=== PATIENT | male | born 1955 | race Caucasian/White ===

== ENCOUNTER 2018-01-09 11:30 | Inpatient (IN) | payer OTHER ==
[~2018-01-09] VITALS: Ht 175.3 cm; Wt 82.3 kg
[~2018-01-09 11:30] MED LIST: LISI-167 PO
[2018-01-09] MEDS ORDERED: HEPARIN 25,000 UNITS/500ML PMX 500 ML IV PRN ×2 (12:00→13:00)
[2018-01-09 12:15] LABS: BASOPHILS # (AUTO) 0.08 x10^3/uL (0-0.1); BASOPHILS % (AUTO) 1 % (0-1); EOSINOPHILS # (AUTO) 0.19 x10^3/uL (0-0.4); EOSINOPHILS % (AUTO) 2 % (1-7); LYMPHOCYTES # (AUTO) 0.84 x10^3/uL (1-3.4); LYMPHOCYTES % (AUTO) 7 % (22-44); MD NO; MEAN CORPUSCULAR HEMOGLOBIN 30.5 pg (27.5-34.5); MEAN CORPUSCULAR HGB CONC 33.6 g/dL (33.2-36.2); MEAN CORPUSCULAR VOLUME 90.7 fL (81-97); MONOCYTES # (AUTO) 0.86 x10^3/uL (0.2-0.8); MONOCYTES % (AUTO) 7 % (2-9); NEUTROPHILS % (AUTO) 84 % (42-75); PLATELET COUNT 483 x10^3/uL (130-400); RED BLOOD COUNT 4.55 x10^6/uL (4.38-5.82); RED CELL DISTRIBUTION WIDTH 12.3 % (9.4-14.8)
[2018-01-09] MEDS ORDERED: HEPARIN 25,000 UNITS/500ML PMX 500 ML ONE (12:18)
[2018-01-09] MEDS ORDERED: HEPARIN 5,000 UNITS/ML, 1ML ONE (12:27)
[2018-01-09 12:28] LABS: ANION GAP 10 mmol/L (5-15); CALCIUM 8.4 mg/dL (8.5-10.1); CHLORIDE 97 mmol/L (98-107); CREATININE 1.12 mg/dL (0.7-1.3)
[2018-01-09] MEDS ORDERED: NITROGLYCERIN OINT 2%, 1GM TP ONE (12:30)
[2018-01-09 12:31] LABS: INTERNATIONAL NORMALIZED RATIO 1.13 (0.93-1.1); PROTHROMBIN TIME 11.7 Seconds (9.6-11.5)
[2018-01-09 12:34] LABS: TROPONIN I 0.789 ng/mL (0.000-0.045)
[2018-01-09] MEDS ORDERED: MORPHINE SULFATE 4 MG/ML, 1ML ONE (12:49)
[2018-01-09] MEDS ORDERED: HEPARIN 5,000 UNITS/ML, 1ML IV PRN ×2 (13:00)
[2018-01-09] MEDS ORDERED: HEPARIN 5,000 UNITS/ML, 1ML IV ONE ×2 (13:00)
[2018-01-09] MEDS ORDERED: SODIUM CHLORIDE FLUSH 10ML SYR IVF PRN (14:30)
[2018-01-09] MEDS ORDERED: METO25TA2 PO (14:47)
[2018-01-09] MEDS ORDERED: METF500T17 PO (14:47)
[2018-01-09] MEDS ORDERED: GLIP10TA13 PO (14:47)
[2018-01-09] MEDS ORDERED: LISI2.5T PO (14:47)
[2018-01-09] MEDS ORDERED: SPIR25TA5 PO (14:47)
[2018-01-09] MEDS ORDERED: PRAS10TA4 PO (14:47)
[2018-01-09] MEDS ORDERED: ATOR-2 PO (14:47)
[2018-01-09] MEDS ORDERED: CANA300T PO (14:47)
[2018-01-09] MEDS ORDERED: FURO20TA3 PO (14:47)
[2018-01-09] MEDS ORDERED: ASPI-515 PO (14:47)
[2018-01-09] MEDS ORDERED: ONDANSETRON 2MG/ML, 2ML IVPush PRN (15:00)
[2018-01-09] MEDS ORDERED: DOCUSATE 100 MG CAPSULE PO PRN (15:00)
[2018-01-09] MEDS ORDERED: GLUCAGON 1 MG IM PRN (15:00)
[2018-01-09] MEDS ORDERED: ACETAMINOPHEN 325 MG TABLET PO PRN (15:00)
[2018-01-09] MEDS ORDERED: POLYETHYLENE GLYCOL 17 GM PACKET PO PRN (15:00)
[2018-01-09] MEDS ORDERED: MORPHINE SULFATE 4 MG/ML, 1ML IVPush PRN (15:00)
[2018-01-09] MEDS ORDERED: ASPIRIN 81 MG TABLET CHEW PO ONE (15:00)
[2018-01-09] MEDS ORDERED: DEXTROSE 4 GM TAB.CHEW PO PRN (15:00)
[2018-01-09] MEDS ORDERED: OXYcodone IR 5MG TABLET PO PRN (15:00)
[2018-01-09] MEDS ORDERED: DEXTROSE 50%, 50ML SYRINGE IVPush PRN (15:00)
[2018-01-09] MEDS ORDERED: ASPIRIN 81 MG TABLET CHEW ONE (15:06)
[2018-01-09 15:24] LABS: TROPONIN I 0.675 ng/mL (0.000-0.045)
[2018-01-09] MEDS: INSULIN LISPRO 100 UNITS/ML, PEN SQ-INSULIN SCH ×2 (16:00→21:00)
[2018-01-09] MEDS ORDERED: [UNRECOGNIZED DRUG - OTHER] MC SCH (16:00)
[2018-01-09 16:05] VITALS: BP 94/65
[2018-01-09] MEDS ORDERED: MIDAZOLAM 1 MG/ML, 5ML ONE (16:27)
[2018-01-09] MEDS ORDERED: TICAGRELOR 90 MG TABLET ONE (16:27)
[2018-01-09] MEDS ORDERED: FENTANYL PF 100 MCG/2ML ONE (16:27)
[2018-01-09] MEDS ORDERED: LIDOCAINE/PF 1%, 30ML ONE (16:27)
[2018-01-09] MEDS ORDERED: BIVALIRUDIN 250 MG ONE (16:27)
[2018-01-09] MEDS ORDERED: LIDOCAINE 2%, 10ML ONE (17:15)
[2018-01-09] MEDS ORDERED: SODIUM CHLORIDE 0.9% 1,000 ML IV SCH (17:31)
[2018-01-09 19:15] VITALS: BP 90/58
[2018-01-09] MEDS ORDERED: SODIUM CHLORIDE FLUSH 10ML SYR IVF SCH (21:00)
[2018-01-09] MEDS: FAMOTIDINE 20 MG TABLET PO SCH (21:04)
[2018-01-09] MEDS: ATORVASTATIN 80 MG TABLET PO SCH (21:04)
[2018-01-09] MEDS: SODIUM CHLORIDE FLUSH 10ML SYR IVF SCH (21:04)
[2018-01-09 22:25] VITALS: BP 95/61
[2018-01-09 22:44] VITALS: BP 89/63
[2018-01-09 23:14] VITALS: BP 98/65
[2018-01-09 23:44] VITALS: BP 102/68
[2018-01-10] VITALS (15 sets, daily range): BP systolic 86–111; BP diastolic 51–72
[2018-01-10] MEDS: GUAIFENESIN/COD200MG-20MG/10ML LIQUID PO PRN ×2 (01:04→01:05)
[2018-01-10] MEDS: SODIUM CHLORIDE 0.9% 1,000 ML IV SCH (03:21)
[2018-01-10 04:51] LABS: BASOPHILS # (AUTO) 0.09 x10^3/uL (0-0.1); BASOPHILS % (AUTO) 1 % (0-1); EOSINOPHILS # (AUTO) 0.01 x10^3/uL (0-0.4); EOSINOPHILS % (AUTO) 0 % (1-7); LYMPHOCYTES # (AUTO) 0.32 x10^3/uL (1-3.4); LYMPHOCYTES % (AUTO) 3 % (22-44); MD NO; MEAN CORPUSCULAR HEMOGLOBIN 30.7 pg (27.5-34.5); MEAN CORPUSCULAR HGB CONC 33.5 g/dL (33.2-36.2); MEAN CORPUSCULAR VOLUME 91.7 fL (81-97); MEAN PLATELET VOLUME 8.2 fL (7.4-10.4); MONOCYTES # (AUTO) 0.53 x10^3/uL (0.2-0.8); MONOCYTES % (AUTO) 5 % (2-9); NEUTROPHILS # (AUTO) 9.25 x10^3/uL (1.8-6.8); NEUTROPHILS % (AUTO) 91 % (42-75); PLATELET COUNT 419 x10^3/uL (130-400)
[2018-01-10 05:02] LABS: ANION GAP 12 mmol/L (5-15); CHLORIDE 104 mmol/L (98-107)
[2018-01-10 05:10] LABS: ALANINE AMINOTRANSFERASE 38 U/L (12-78); ALBUMIN 2.5 g/dL (3.4-5.0); ALKALINE PHOSPHATASE 112 U/L (45-117); BILIRUBIN,TOTAL 0.8 mg/dL (0.2-1.0); CALCIUM 8.2 mg/dL (8.5-10.1); CHOL/HDL RATIO 2.6; CHOLESTEROL, TOTAL 60 mg/dL (140-239); CREATININE 0.91 mg/dL (0.7-1.3); HDL CHOL % 38 % (26-37); HDL CHOLESTEROL (DIRECT) 23 mg/dL (40-60); LDL CHOLESTEROL,CALCULATED 30 mg/dL (54-169); LDL/HDL RATIO 1.3 (0.5-3.0); TOTAL PROTEIN 6.6 g/dL (6.4-8.2); TRIGLYCERIDES 34 mg/dL (50-200); VLDL CHOLESTEROL 7 mg/dL (0-25)
[2018-01-10] MEDS ORDERED: ASPIRIN 325 MG TABLET EC PO SCH (06:00)
[2018-01-10] MEDS: INSULIN LISPRO 100 UNITS/ML, PEN SQ-INSULIN SCH ×4 (08:20→20:51)
[2018-01-10] MEDS: METOPROLOL SUCCINATE 25 MG TAB.ER.24H PO SCH (08:54)
[2018-01-10] MEDS: PRASUGREL 10 MG TABLET PO SCH (08:54)
[2018-01-10] MEDS: FAMOTIDINE 20 MG TABLET PO SCH ×2 (08:54→20:51)
[2018-01-10] MEDS: SENNA/DOCUSATE TABLET PO SCH (08:54)
[2018-01-10] MEDS: SODIUM CHLORIDE FLUSH 10ML SYR IVF SCH ×2 (08:54→20:51)
[2018-01-10] MEDS: SPIRONOLACTONE 25 MG TABLET PO SCH (10:44)
[2018-01-10] MEDS: FUROSEMIDE 20 MG TABLET PO SCH (10:44)
[2018-01-10] MEDS: ATORVASTATIN 80 MG TABLET PO SCH (20:51)
[2018-01-11] MEDS: SODIUM CHLORIDE 0.9% 1,000 ML IV SCH ×2 (00:45→09:31)
[2018-01-11 01:22] VITALS: BP 99/64
[2018-01-11] MEDS: ASPIRIN 81 MG TABLET EC PO SCH (05:22)
[2018-01-11 07:10] VITALS: BP 117/73
[2018-01-11] MEDS: SENNA/DOCUSATE TABLET PO SCH (08:42)
[2018-01-11] MEDS: FAMOTIDINE 20 MG TABLET PO SCH ×2 (08:42→21:06)
[2018-01-11] MEDS: METOPROLOL SUCCINATE 25 MG TAB.ER.24H PO SCH (08:42)
[2018-01-11] MEDS: INSULIN LISPRO 100 UNITS/ML, PEN SQ-INSULIN SCH ×4 (08:42→21:06)
[2018-01-11] MEDS: SODIUM CHLORIDE FLUSH 10ML SYR IVF SCH ×2 (08:42→21:05)
[2018-01-11] MEDS: PRASUGREL 10 MG TABLET PO SCH (08:43)
[2018-01-11] MEDS: FUROSEMIDE 20 MG TABLET PO SCH (08:43)
[2018-01-11] MEDS: SPIRONOLACTONE 25 MG TABLET PO SCH (08:44)
[2018-01-11 14:00] VITALS: BP 98/60
[2018-01-11 19:49] VITALS: BP 122/71
[2018-01-11] MEDS: GUAIFENESIN/COD200MG-20MG/10ML LIQUID PO PRN (21:05)
[2018-01-11] MEDS: ATORVASTATIN 80 MG TABLET PO SCH (21:06)
[2018-01-12 01:02] VITALS: BP 108/65
[2018-01-12] MEDS: ASPIRIN 81 MG TABLET EC PO SCH (05:24)
[2018-01-12 05:41] LABS: ANION GAP 7 mmol/L (5-15); CALCIUM 8.3 mg/dL (8.5-10.1); CHLORIDE 110 mmol/L (98-107); CREATININE 0.79 mg/dL (0.7-1.3)
[2018-01-12 05:42] LABS: BASOPHILS # (AUTO) 0.09 x10^3/uL (0-0.1); BASOPHILS % (AUTO) 1 % (0-1); EOSINOPHILS % (AUTO) 1 % (1-7); LYMPHOCYTES # (AUTO) 1.06 x10^3/uL (1-3.4); LYMPHOCYTES % (AUTO) 11 % (22-44); MD NO; MEAN CORPUSCULAR HEMOGLOBIN 30.7 pg (27.5-34.5); MEAN CORPUSCULAR HGB CONC 33.4 g/dL (33.2-36.2); MEAN CORPUSCULAR VOLUME 91.8 fL (81-97); MEAN PLATELET VOLUME 8.4 fL (7.4-10.4); MONOCYTES % (AUTO) 8 % (2-9); NEUTROPHILS # (AUTO) 8.08 x10^3/uL (1.8-6.8); NEUTROPHILS % (AUTO) 80 % (42-75); PLATELET COUNT 469 x10^3/uL (130-400); RED BLOOD COUNT 4.16 x10^6/uL (4.38-5.82); RED CELL DISTRIBUTION WIDTH 12.6 % (9.4-14.8)
[2018-01-12 06:54] VITALS: BP 118/73
[2018-01-12] MEDS: INSULIN LISPRO 100 UNITS/ML, PEN SQ-INSULIN SCH ×2 (08:00→11:00)
[2018-01-12] MEDS: METOPROLOL SUCCINATE 25 MG TAB.ER.24H PO SCH (08:36)
[2018-01-12] MEDS: FAMOTIDINE 20 MG TABLET PO SCH (08:37)
[2018-01-12] MEDS: PRASUGREL 10 MG TABLET PO SCH (08:37)
[2018-01-12] MEDS: FUROSEMIDE 20 MG TABLET PO SCH (08:38)
[2018-01-12] MEDS: SPIRONOLACTONE 25 MG TABLET PO SCH (08:39)
[2018-01-12] MEDS: SENNA/DOCUSATE TABLET PO SCH (08:40)
[2018-01-12] MEDS: SODIUM CHLORIDE FLUSH 10ML SYR IVF SCH (08:43)
[2018-01-12] MEDS ORDERED: FLU VACCINE PER PHARMACY IM ONE (11:30)
== END 2018-01-12 12:45 | disposition home or self-care (01) | DRG 280 ==
LOC: ED 14:14 → SUATTDRO 14:35 → 5SO 15:00 → DCLOUNGE 01-12 12:13
PROVIDERS: ADMIT Family Medicine; ATTEND Family Medicine
PROC: 0W9D30Z Drainage of Pericardial Cavity with Drainage Device, Percutaneous Approach (ICD-10-PCS; principal; 2018-01-09)
PROC: 4A023N7 Measurement of Cardiac Sampling and Pressure, Left Heart, Percutaneous Approach (ICD-10-PCS; 2018-01-09)
PROC: B2111ZZ Fluoroscopy of Multiple Coronary Arteries using Low Osmolar Contrast (ICD-10-PCS; 2018-01-09)
PROC: B2151ZZ Fluoroscopy of Left Heart using Low Osmolar Contrast (ICD-10-PCS; 2018-01-09)
DX: I21.09 ST elevation (STEMI) myocardial infarction involving other coronary artery of anterior wall (principal); I50.23 Acute on chronic systolic (congestive) heart failure; I31.4 Cardiac tamponade; I24.1 Dressler's syndrome; E44.0 Moderate protein-calorie malnutrition; E87.1 Hypo-osmolality and hyponatremia; I22.0 Subsequent ST elevation (STEMI) myocardial infarction of anterior wall; E11.9 Type 2 diabetes mellitus without complications; E78.5 Hyperlipidemia, unspecified; I11.0 Hypertensive heart disease with heart failure; I25.10 Atherosclerotic heart disease of native coronary artery without angina pectoris; I35.8 Other nonrheumatic aortic valve disorders; Z95.5 Presence of coronary angioplasty implant and graft; R05 Cough; I95.9 Hypotension, unspecified; Z68.26 Body mass index [BMI] 26.0-26.9, adult
CPT/HCPCS: 33010; 36415; 71045; 76930; 80048; 80053; 80061; 82040; 82962; 83735; 84484; 85025; 85520; 85610; 85730; 87070; 87205; 88112; 88305; 89051; 90656; 93005; 93306; 93308; 93321; 93325; 93458; 96365; 96366; 99156; 99157; C1729; C1760; C1769; C1894; G0378; J0583; J1644; J2001; J2250; J3010; J3490; J1815; J7030; J7512; Q9967

== ENCOUNTER 2018-01-27 09:48 | Observation (INO) | payer OTHER ==
[~2018-01-27] VITALS: Ht 175.3 cm; Wt 77.9 kg
[~2018-01-27 09:48] MED LIST changes: +ASPI-515 PO; +ATOR-2 PO; +CANA300T PO; +FURO20TA3 PO; +GLIP10TA13 PO; +LISI2.5T PO; +METF500T17 PO; +METO25TA2 PO; +PRAS10TA4 PO; +SPIR25TA5 PO
[2018-01-27] MEDS ORDERED: CARV3.1212 PO (10:11)
[2018-01-27] MEDS ORDERED: MORPHINE SULFATE 4 MG/ML, 1ML ONE (10:38)
[2018-01-27] MEDS ORDERED: ONDANSETRON ODT 4 MG ONE (10:38)
[2018-01-27 10:48] LABS: BASOPHILS # (AUTO) 0.14 x10^3/uL (0-0.1); BASOPHILS % (AUTO) 2 % (0-1); EOSINOPHILS # (AUTO) 0.21 x10^3/uL (0-0.4); EOSINOPHILS % (AUTO) 3 % (1-7); LYMPHOCYTES # (AUTO) 1.05 x10^3/uL (1-3.4); LYMPHOCYTES % (AUTO) 13 % (22-44); MD NO; MEAN CORPUSCULAR HEMOGLOBIN 30.5 pg (27.5-34.5); MEAN CORPUSCULAR HGB CONC 33.8 g/dL (33.2-36.2); MEAN CORPUSCULAR VOLUME 90.2 fL (81-97); MEAN PLATELET VOLUME 9.1 fL (7.4-10.4); MONOCYTES # (AUTO) 0.47 x10^3/uL (0.2-0.8); MONOCYTES % (AUTO) 6 % (2-9); NEUTROPHILS # (AUTO) 6.33 x10^3/uL (1.8-6.8); NEUTROPHILS % (AUTO) 77 % (42-75); PLATELET COUNT 233 x10^3/uL (130-400); RED BLOOD COUNT 4.54 x10^6/uL (4.38-5.82)
[2018-01-27] MEDS ORDERED: ONDANSETRON 2MG/ML, 2ML ONE (10:50)
[2018-01-27 10:58] LABS: INTERNATIONAL NORMALIZED RATIO 1.11 (0.93-1.1); PROTHROMBIN TIME 11.4 Seconds (9.6-11.5)
[2018-01-27 11:00] LABS: ALANINE AMINOTRANSFERASE 34 U/L (12-78); ALBUMIN 3.5 g/dL (3.4-5.0); ANION GAP 8 mmol/L (5-15); CALCIUM 8.7 mg/dL (8.5-10.1); CHLORIDE 103 mmol/L (98-107)
[2018-01-27] MEDS ORDERED: MORPHINE SULFATE 4 MG/ML, 1ML IVPush PRN (11:00)
[2018-01-27] MEDS ORDERED: ONDANSETRON 2MG/ML, 2ML IVPush ONE (11:00)
[2018-01-27 11:03] LABS: ALKALINE PHOSPHATASE 129 U/L (45-117); BILIRUBIN,TOTAL 0.5 mg/dL (0.2-1.0); TOTAL PROTEIN 7.2 g/dL (6.4-8.2); TROPONIN I 0.015 ng/mL (0.000-0.045)
[2018-01-27] MEDS ORDERED: OMNIPAQUE 350 MG/ML, 100ML BOTTLE ONE (12:26)
[2018-01-27] MEDS ORDERED: KETOROLAC 30 MG/1 ML IVPush ONE (13:30)
[2018-01-27 13:45] LABS: TROPONIN I 0.021 ng/mL (0.000-0.045)
[2018-01-27] MEDS ORDERED: KETOROLAC 30 MG/1 ML ONE (13:46)
[2018-01-27] MEDS ORDERED: IBUP-1623 PO (15:15)
[2018-01-27 15:21] VITALS: BP 91/59
[2018-01-27] MEDS ORDERED: ACETAMINOPHEN 325 MG TABLET PO PRN (16:00)
[2018-01-27] MEDS ORDERED: DEXTROSE 4 GM TAB.CHEW PO PRN (16:00)
[2018-01-27] MEDS ORDERED: NITROGLYCERIN 0.4 MG/SPRAY SL PRN (16:00)
[2018-01-27] MEDS ORDERED: DOCUSATE 100 MG CAPSULE PO PRN (16:00)
[2018-01-27] MEDS ORDERED: NITROGLYCERIN 0.4 MG BOTTLE (25 TABS) SL PRN ×2 (16:00)
[2018-01-27] MEDS ORDERED: DEXTROSE 50%, 50ML SYRINGE IVPush PRN (16:00)
[2018-01-27] MEDS: HEPARIN 5,000 UNITS/ML, 1ML SQ SCH (16:00)
[2018-01-27] MEDS ORDERED: GLUCAGON 1 MG IM PRN (16:00)
[2018-01-27] MEDS ORDERED: morphine SULFATE 10 MG/ML, 1ML IVPush PRN (16:00)
[2018-01-27] MEDS ORDERED: POLYETHYLENE GLYCOL 17 GM PACKET PO PRN (16:00)
[2018-01-27] MEDS ORDERED: ENALAPRILAT 1.25 MG/ML, 2ML IVPush PRN (16:00)
[2018-01-27] MEDS: INSULIN LISPRO 100 UNITS/ML, PEN SQ-INSULIN SCH ×2 (16:26→20:44)
[2018-01-27 18:56] LABS: TROPONIN I 0.023 ng/mL (0.000-0.045)
[2018-01-27 19:00] VITALS: BP 86/57
[2018-01-27 20:40] VITALS: BP 89/58
[2018-01-27] MEDS: SODIUM CHLORIDE FLUSH 10ML SYR IVF SCH (20:45)
[2018-01-27] MEDS: CARVEDILOL 3.125 MG TABLET PO SCH (20:45)
[2018-01-27] MEDS ORDERED: CARVEDILOL 3.125 MG TABLET PO SCH (21:00)
[2018-01-27] MEDS ORDERED: metFORMIN 500 MG TABLET PO SCH (21:00)
[2018-01-27] MEDS ORDERED: ATORVASTATIN 80 MG TABLET PO SCH (21:00)
[2018-01-28] MEDS: HEPARIN 5,000 UNITS/ML, 1ML SQ SCH ×2 (00:07→09:45)
[2018-01-28 00:10] VITALS: BP 97/61
[2018-01-28] MEDS ORDERED: ROBITUSSIN MC SCH (03:00)
[2018-01-28] MEDS ORDERED: GUAIFENESIN/COD200MG-20MG/10ML LIQUID PO PRN (03:00)
[2018-01-28] MEDS: GUAIFENESIN/COD200MG-20MG/10ML LIQUID PO PRN ×2 (03:27→12:01)
[2018-01-28 05:14] LABS: BASOPHILS # (AUTO) 0.04 x10^3/uL (0-0.1); BASOPHILS % (AUTO) 1 % (0-1); EOSINOPHILS % (AUTO) 3 % (1-7); LYMPHOCYTES # (AUTO) 0.63 x10^3/uL (1-3.4); LYMPHOCYTES % (AUTO) 9 % (22-44); MD NO; MEAN CORPUSCULAR HEMOGLOBIN 30.8 pg (27.5-34.5); MEAN CORPUSCULAR HGB CONC 33.7 g/dL (33.2-36.2); MEAN CORPUSCULAR VOLUME 91.3 fL (81-97); MEAN PLATELET VOLUME 9.2 fL (7.4-10.4); MONOCYTES # (AUTO) 0.54 x10^3/uL (0.2-0.8); MONOCYTES % (AUTO) 7 % (2-9); NEUTROPHILS % (AUTO) 81 % (42-75); PLATELET COUNT 200 x10^3/uL (130-400); RED BLOOD COUNT 4.43 x10^6/uL (4.38-5.82)
[2018-01-28 05:30] LABS: ANION GAP 6 mmol/L (5-15); CHLORIDE 109 mmol/L (98-107); CREATININE 1.05 mg/dL (0.7-1.3)
[2018-01-28 06:39] LABS: TROPONIN I < 0.015 ng/mL (0.000-0.045)
[2018-01-28] MEDS: INSULIN LISPRO 100 UNITS/ML, PEN SQ-INSULIN SCH ×2 (07:00→12:05)
[2018-01-28 07:22] VITALS: BP 92/58
[2018-01-28] MEDS ORDERED: METOPROLOL SUCCINATE 25 MG TAB.ER.24H PO SCH ×2 (09:00)
[2018-01-28] MEDS ORDERED: ASPIRIN 81 MG TABLET EC PO SCH (09:00)
[2018-01-28] MEDS ORDERED: LISINOPRIL 5 MG TABLET PO SCH ×2 (09:00)
[2018-01-28] MEDS ORDERED: SPIRONOLACTONE 25 MG TABLET PO SCH (09:00)
[2018-01-28] MEDS ORDERED: TEMPLATE NON-FORMULARY MED. (Canagliflozin (Invokana) 300 MG) PO SCH (09:00)
[2018-01-28] MEDS ORDERED: metFORMIN 500 MG TABLET PO SCH ×2 (09:00)
[2018-01-28] MEDS ORDERED: LOSARTAN 25MG TABLET PO SCH (09:00)
[2018-01-28] MEDS ORDERED: PRASUGREL 10 MG TABLET PO SCH (09:00)
[2018-01-28] MEDS ORDERED: FUROSEMIDE 20 MG TABLET PO SCH (09:00)
[2018-01-28] MEDS: SODIUM CHLORIDE FLUSH 10ML SYR IVF SCH (09:45)
[2018-01-28] MEDS: CARVEDILOL 3.125 MG TABLET PO SCH (09:48)
[2018-01-28 10:03] VITALS: BP 97/64
[2018-01-28] MEDS ORDERED: LOSA25TA2 PO (11:47)
[2018-01-28 12:00] VITALS: BP 96/65
[2018-01-28 13:45] VITALS: BP 96/66
[2018-01-28 14:17] VITALS: BP 103/69
== END 2018-01-28 16:15 | disposition home or self-care (01) ==
LOC: ED 12:50 → INTOOBSV 14:22 → 5SO 14:22 → DCLOUNGE 01-28 15:49
PROVIDERS: ADMIT Family Medicine; ATTEND Family Medicine
DX: R07.89 Other chest pain (principal); E11.9 Type 2 diabetes mellitus without complications; I25.5 Ischemic cardiomyopathy; E78.5 Hyperlipidemia, unspecified; I11.0 Hypertensive heart disease with heart failure; I25.110 Atherosclerotic heart disease of native coronary artery with unstable angina pectoris; I31.4 Cardiac tamponade; I25.2 Old myocardial infarction; I50.42 Chronic combined systolic (congestive) and diastolic (congestive) heart failure; Z87.891 Personal history of nicotine dependence; Z95.5 Presence of coronary angioplasty implant and graft
CPT/HCPCS: 36415; 71045; 71275; 80048; 80053; 82962; 84484; 85025; 85610; 85730; 93005; 93306; 93308; 96372; 96374; 96375; 99285; G0378; J1644; J1815; J1885; J2405; Q9967

== ENCOUNTER 2018-02-03 18:50 | Inpatient (IN) | payer BC, OTHER ==
[~2018-02-03] VITALS: Ht 175.3 cm; Wt 76.8 kg
[~2018-02-03 18:50] MED LIST changes: +CARV3.1212 PO; +IBUP-1623 PO; +LOSA25TA2 PO
[2018-02-03] MEDS ORDERED: ASPIRIN 81 MG TABLET CHEW ONE (19:20)
[2018-02-03 19:29] LABS: BASOPHILS # (AUTO) 0.14 x10^3/uL (0-0.1); BASOPHILS % (AUTO) 2 % (0-1); EOSINOPHILS # (AUTO) 0.27 x10^3/uL (0-0.4); EOSINOPHILS % (AUTO) 3 % (1-7); LYMPHOCYTES # (AUTO) 1.38 x10^3/uL (1-3.4); LYMPHOCYTES % (AUTO) 15 % (22-44); MD NO; MEAN CORPUSCULAR HEMOGLOBIN 30.9 pg (27.5-34.5); MEAN PLATELET VOLUME 8.7 fL (7.4-10.4); MONOCYTES # (AUTO) 0.73 x10^3/uL (0.2-0.8); MONOCYTES % (AUTO) 8 % (2-9); NEUTROPHILS # (AUTO) 6.59 x10^3/uL (1.8-6.8); NEUTROPHILS % (AUTO) 72 % (42-75); PLATELET COUNT 268 x10^3/uL (130-400); RED BLOOD COUNT 4.59 x10^6/uL (4.38-5.82); RED CELL DISTRIBUTION WIDTH 13.3 % (9.4-14.8)
[2018-02-03] MEDS ORDERED: ASPIRIN 81 MG TABLET CHEW PO ONE (19:30)
[2018-02-03 19:41] LABS: ALBUMIN 3.7 g/dL (3.4-5.0); ANION GAP 9 mmol/L (5-15); CALCIUM 9.1 mg/dL (8.5-10.1); CHLORIDE 103 mmol/L (98-107); CREATININE 0.94 mg/dL (0.7-1.3)
[2018-02-03 19:45] LABS: TROPONIN I < 0.015 ng/mL (0.000-0.045)
[2018-02-03] MEDS ORDERED: MORPHINE SULFATE 4 MG/ML, 1ML ONE (20:07)
[2018-02-03] MEDS ORDERED: NITROGLYCERIN OINT 2%, 1GM TP ONE (20:07)
[2018-02-03] MEDS ORDERED: NITROGLYCERIN 0.2 MG/HR PATCH TD ONE (20:30)
[2018-02-03] MEDS ORDERED: MORPHINE SULFATE 4 MG/ML, 1ML IVPush ONE (20:30)
[2018-02-03] MEDS ORDERED: SODIUM CHLORIDE 0.9% 1,000 ML IV SCH (21:10)
[2018-02-03] MEDS ORDERED: morphine SULFATE 10 MG/ML, 1ML IVPush PRN (21:30)
[2018-02-03] MEDS ORDERED: ONDANSETRON 2MG/ML, 2ML IVPush PRN (21:30)
[2018-02-03] MEDS ORDERED: ONDANSETRON ODT 4 MG PO PRN (21:30)
[2018-02-03] MEDS ORDERED: POLYETHYLENE GLYCOL 17 GM PACKET PO PRN (21:30)
[2018-02-03] MEDS ORDERED: NITROGLYCERIN 0.4 MG BOTTLE (25 TABS) SL PRN (21:30)
[2018-02-03] MEDS: ATORVASTATIN 80 MG TABLET PO SCH (22:32)
[2018-02-03 22:50] VITALS: BP 101/70
[2018-02-04 03:08] VITALS: BP 94/56
[2018-02-04 05:37] LABS: TROPONIN I < 0.015 ng/mL (0.000-0.045)
[2018-02-04 06:52] VITALS: BP 101/69
[2018-02-04] MEDS: Canagliflozin (Invokana) 300 MG) PO SCH (09:00)
[2018-02-04] MEDS: INSULIN LISPRO 100 UNITS/ML, PEN SQ-INSULIN SCH ×4 (09:51→19:57)
[2018-02-04] MEDS: LOSARTAN 25MG TABLET PO SCH (09:52)
[2018-02-04] MEDS: ASPIRIN 81 MG TABLET EC PO SCH (09:53)
[2018-02-04] MEDS: SPIRONOLACTONE 25 MG TABLET PO SCH (09:53)
[2018-02-04] MEDS: FUROSEMIDE 20 MG TABLET PO SCH (09:53)
[2018-02-04] MEDS: metFORMIN 500 MG TABLET PO SCH ×2 (09:53→19:57)
[2018-02-04] MEDS: PRASUGREL 10 MG TABLET PO SCH (09:53)
[2018-02-04] MEDS: CARVEDILOL 3.125 MG TABLET PO SCH ×2 (09:53→19:57)
[2018-02-04 12:59] VITALS: BP 105/69
[2018-02-04 19:00] VITALS: BP 104/68
[2018-02-04] MEDS: ATORVASTATIN 80 MG TABLET PO SCH (19:57)
[2018-02-05 00:55] VITALS: BP 100/65
[2018-02-05 08:28] VITALS: BP 100/66
[2018-02-05] MEDS: INSULIN LISPRO 100 UNITS/ML, PEN SQ-INSULIN SCH ×2 (08:49→11:20)
[2018-02-05 08:50] VITALS: BP 101/66
[2018-02-05] MEDS: PRASUGREL 10 MG TABLET PO SCH (08:52)
[2018-02-05] MEDS: LOSARTAN 25MG TABLET PO SCH (08:52)
[2018-02-05] MEDS: ASPIRIN 81 MG TABLET EC PO SCH (08:52)
[2018-02-05] MEDS: SPIRONOLACTONE 25 MG TABLET PO SCH (08:52)
[2018-02-05] MEDS: Canagliflozin (Invokana) 300 MG) PO SCH (08:52)
[2018-02-05] MEDS: CARVEDILOL 3.125 MG TABLET PO SCH (08:52)
[2018-02-05] MEDS: metFORMIN 500 MG TABLET PO SCH (08:52)
[2018-02-05] MEDS: FUROSEMIDE 20 MG TABLET PO SCH (08:53)
[2018-02-05] MEDS ORDERED: IBUP-1222 PO (12:28)
[2018-02-05] MEDS ORDERED: PANT20TA3 PO (12:28)
== END 2018-02-05 14:45 | disposition home or self-care (01) | DRG 316 ==
LOC: ED 20:45 → SUATTDRO 20:52 → EDIP 21:05 → 5SO 22:14 → DCLOUNGE 02-05 14:27
PROVIDERS: ADMIT Hospitalist; ATTEND Hospitalist
DX: I31.9 Disease of pericardium, unspecified (principal); E11.9 Type 2 diabetes mellitus without complications; E78.5 Hyperlipidemia, unspecified; I25.5 Ischemic cardiomyopathy; I35.8 Other nonrheumatic aortic valve disorders; I31.3 Pericardial effusion (noninflammatory); I10 Essential (primary) hypertension; I25.10 Atherosclerotic heart disease of native coronary artery without angina pectoris; I25.2 Old myocardial infarction; Z95.5 Presence of coronary angioplasty implant and graft
CPT/HCPCS: 36415; 71046; 80048; 82040; 82962; 83880; 84484; 85025; 93005; 93308; 93325; 96374; 99285; G0378; J1815; J2270; J7030

== ENCOUNTER 2018-02-18 10:03 | Emergency (ER) | payer OTHER ==
[~2018-02-18] VITALS: Ht 175.3 cm; Wt 77.6 kg
[~2018-02-18 10:03] MED LIST changes: +IBUP-1222 PO; +PANT20TA3 PO
[2018-02-18 10:29] LABS: BASOPHILS # (AUTO) 0.12 x10^3/uL (0-0.1); BASOPHILS % (AUTO) 2 % (0-1); EOSINOPHILS # (AUTO) 0.21 x10^3/uL (0-0.4); EOSINOPHILS % (AUTO) 4 % (1-7); LYMPHOCYTES # (AUTO) 0.84 x10^3/uL (1-3.4); LYMPHOCYTES % (AUTO) 14 % (22-44); MD NO; MEAN CORPUSCULAR HEMOGLOBIN 30.8 pg (27.5-34.5); MEAN CORPUSCULAR HGB CONC 34.3 g/dL (33.2-36.2); MEAN CORPUSCULAR VOLUME 89.9 fL (81-97); MEAN PLATELET VOLUME 8.1 fL (7.4-10.4); MONOCYTES # (AUTO) 0.43 x10^3/uL (0.2-0.8); MONOCYTES % (AUTO) 7 % (2-9); NEUTROPHILS # (AUTO) 4.37 x10^3/uL (1.8-6.8); NEUTROPHILS % (AUTO) 73 % (42-75); PLATELET COUNT 383 x10^3/uL (130-400)
[2018-02-18 10:38] LABS: INTERNATIONAL NORMALIZED RATIO 1.05 (0.93-1.1); PROTHROMBIN TIME 10.9 Seconds (9.6-11.5)
[2018-02-18 10:40] LABS: ALBUMIN 3.3 g/dL (3.4-5.0); ANION GAP 9 mmol/L (5-15); CALCIUM 8.6 mg/dL (8.5-10.1); CHLORIDE 101 mmol/L (98-107)
[2018-02-18 10:43] LABS: ALANINE AMINOTRANSFERASE 41 U/L (12-78)
[2018-02-18 10:47] LABS: ALKALINE PHOSPHATASE 147 U/L (45-117); BILIRUBIN,TOTAL 0.3 mg/dL (0.2-1.0); TOTAL PROTEIN 7.4 g/dL (6.4-8.2); TROPONIN I < 0.015 ng/mL (0.000-0.045)
[2018-02-18 11:49] VITALS: BP 106/68
== END 2018-02-18 11:52 | disposition home or self-care (01) ==
LOC: ED 11:45
DX: R07.89 Other chest pain (principal); E78.5 Hyperlipidemia, unspecified; I25.2 Old myocardial infarction; E11.9 Type 2 diabetes mellitus without complications; I10 Essential (primary) hypertension; I25.10 Atherosclerotic heart disease of native coronary artery without angina pectoris
CPT/HCPCS: 36415; 71045; 80053; 84484; 85025; 85610; 93005; 99285

== ENCOUNTER → 2018-02-20 | Outpatient (CLI) | payer OTHER | END | disposition home or self-care (01) | LOC: CFH 09:41 | PROVIDERS: ATTEND Nurse Practitioner Family | DX: I35.8 Other nonrheumatic aortic valve disorders (principal); I10 Essential (primary) hypertension; E78.5 Hyperlipidemia, unspecified; E11.9 Type 2 diabetes mellitus without complications; I25.2 Old myocardial infarction | CPT/HCPCS: 93306 ==

== ENCOUNTER 2018-03-03 13:52 | Emergency (ER) | payer OTHER ==
[~2018-03-03] VITALS: Ht 175.3 cm; Wt 79.9 kg
[2018-03-03 14:27] LABS: BASOPHILS # (AUTO) 0.07 x10^3/uL (0-0.1); BASOPHILS % (AUTO) 1 % (0-1); EOSINOPHILS # (AUTO) 0.35 x10^3/uL (0-0.4); EOSINOPHILS % (AUTO) 5 % (1-7); LYMPHOCYTES # (AUTO) 0.99 x10^3/uL (1-3.4); LYMPHOCYTES % (AUTO) 13 % (22-44); MD NO; MEAN CORPUSCULAR HEMOGLOBIN 29.9 pg (27.5-34.5); MEAN CORPUSCULAR HGB CONC 33.2 g/dL (33.2-36.2); MEAN CORPUSCULAR VOLUME 90.1 fL (81-97); MEAN PLATELET VOLUME 9.1 fL (7.4-10.4); MONOCYTES # (AUTO) 0.63 x10^3/uL (0.2-0.8); MONOCYTES % (AUTO) 8 % (2-9); NEUTROPHILS # (AUTO) 5.82 x10^3/uL (1.8-6.8); NEUTROPHILS % (AUTO) 74 % (42-75); PLATELET COUNT 276 x10^3/uL (130-400); RED BLOOD COUNT 4.16 x10^6/uL (4.38-5.82); RED CELL DISTRIBUTION WIDTH 13.9 % (9.4-14.8)
[2018-03-03 14:45] LABS: ALANINE AMINOTRANSFERASE 35 U/L (12-78); ALBUMIN 3.7 g/dL (3.4-5.0); CALCIUM 8.3 mg/dL (8.5-10.1)
[2018-03-03 14:50] LABS: ALKALINE PHOSPHATASE 139 U/L (45-117); BILIRUBIN,TOTAL 0.3 mg/dL (0.2-1.0); CREATININE 0.86 mg/dL (0.7-1.3); TOTAL PROTEIN 7.4 g/dL (6.4-8.2); TROPONIN I < 0.015 ng/mL (0.000-0.045)
[2018-03-03 15:05] LABS: ANION GAP 6 mmol/L (5-15); CHLORIDE 103 mmol/L (98-107)
[2018-03-03 16:29] VITALS: BP 105/71
== END 2018-03-03 16:49 | disposition home or self-care (01) ==
LOC: ED 16:16
DX: R07.2 Precordial pain (principal); I25.10 Atherosclerotic heart disease of native coronary artery without angina pectoris; I25.2 Old myocardial infarction; I11.0 Hypertensive heart disease with heart failure; E11.9 Type 2 diabetes mellitus without complications; E78.5 Hyperlipidemia, unspecified
CPT/HCPCS: 36415; 71045; 80053; 83880; 84484; 85025; 93005; 99284

== ENCOUNTER 2018-04-02 17:27 | Emergency (ER) | payer OTHER ==
[~2018-04-02] VITALS: Ht 175.3 cm; Wt 79.5 kg
[2018-04-02] MEDS ORDERED: ASPIRIN 81 MG TABLET CHEW ONE ×2 (17:42→17:43)
[2018-04-02] MEDS ORDERED: ASPIRIN 81 MG TABLET CHEW PO ONE (18:00)
[2018-04-02 18:19] LABS: BASOPHILS # (AUTO) 0.15 x10^3/uL (0-0.1); BASOPHILS % (AUTO) 2 % (0-1); EOSINOPHILS # (AUTO) 0.17 x10^3/uL (0-0.4); EOSINOPHILS % (AUTO) 2 % (1-7); LYMPHOCYTES # (AUTO) 1.24 x10^3/uL (1-3.4); LYMPHOCYTES % (AUTO) 15 % (22-44); MD NO; MEAN CORPUSCULAR HEMOGLOBIN 31.5 pg (27.5-34.5); MEAN CORPUSCULAR HGB CONC 34.2 g/dL (33.2-36.2); MEAN CORPUSCULAR VOLUME 91.9 fL (81-97); MEAN PLATELET VOLUME 8.9 fL (7.4-10.4); MONOCYTES # (AUTO) 0.76 x10^3/uL (0.2-0.8); MONOCYTES % (AUTO) 9 % (2-9); NEUTROPHILS # (AUTO) 5.79 x10^3/uL (1.8-6.8); NEUTROPHILS % (AUTO) 71 % (42-75); PLATELET COUNT 251 x10^3/uL (130-400); RED BLOOD COUNT 4.07 x10^6/uL (4.38-5.82); RED CELL DISTRIBUTION WIDTH 15.6 % (9.4-14.8)
[2018-04-02 18:25] LABS: ALBUMIN 4.3 g/dL (3.4-5.0); ANION GAP 10 mmol/L (5-15); CALCIUM 8.8 mg/dL (8.5-10.1); CHLORIDE 99 mmol/L (98-107)
[2018-04-02 18:31] LABS: ALANINE AMINOTRANSFERASE 30 U/L (12-78); ALKALINE PHOSPHATASE 119 U/L (45-117); BILIRUBIN,TOTAL 1.1 mg/dL (0.2-1.0); CREATININE 0.97 mg/dL (0.7-1.3); TOTAL PROTEIN 7.4 g/dL (6.4-8.2); TROPONIN I < 0.015 ng/mL (0.000-0.045)
[2018-04-02 19:28] VITALS: BP 103/53
== END 2018-04-02 19:29 | disposition home or self-care (01) ==
LOC: ED 18:22
DX: R07.89 Other chest pain (principal); I10 Essential (primary) hypertension; E11.9 Type 2 diabetes mellitus without complications; E78.5 Hyperlipidemia, unspecified; I25.2 Old myocardial infarction
CPT/HCPCS: 36415; 71046; 80053; 83735; 84484; 85025; 93005; 99284

== ENCOUNTER → 2018-08-26 | Outpatient (CLI) | payer OTHER | END | disposition home or self-care (01) | LOC: CVU 10:53 | PROVIDERS: ATTEND Internal Medicine Cardiovascular Disease | DX: I70.0 Atherosclerosis of aorta (principal); I42.9 Cardiomyopathy, unspecified | CPT/HCPCS: 78452; 93017; 93306; A9502 ==

== ENCOUNTER → 2019-09-02 | Outpatient (CLI) | payer OTHER | END | disposition home or self-care (01) | LOC: RAD 16:32 | PROVIDERS: ATTEND Nurse Practitioner Psychiatric/Mental Health | DX: M54.2 Cervicalgia (principal) ==